=== PATIENT | female | born 1965 | race Caucasian/White ===

== ENCOUNTER → 2018-02-12 | Outpatient (CLI) | payer BC ==
--- NOTE | 2018-02-12 22:08 | MR ---
EXAMINATION TYPE: MR lumbar spine wo con DATE OF EXAM: 02/12/2018 COMPARISON: Lumbar spine x-ray February 07, 2018 HISTORY: Low back pain, Lt Leg numbness TECHNIQUE: Multiplanar, multisequence imaging of the lumbar spine is performed without IV contrast. FINDINGS: Sagittal images of the lumbar spine show vertebral body heights and alignment to appear sat isfactory. Multilevel disc desiccation is present. There is advanced disc space narrowing L4-L5 level . There is moderate disc space narrowing L5-S1 level. There is mild disc space narrowing L3-L4 level. Posterior increased signal consistent with annular tears is present L3-L4 and L5-S1 levels. Posterio r disc herniations are seen in L2-L3 through the L5-S1 levels on sagittal images. The conus medullari s is normal in position and signal ending at T12-L1 disc space level. There is heterogeneous Modic ty pe II degenerative change involving the L4-L5 endplate with mild to moderate anterior spurring. Axial images show the T12-L1 level to appear within normal limits. Axial images at the L1-L2 level show mild broad disc bulge minimally effacing the anterior thecal sac , bilateral neural foramina are patent. Axial images at L2-L3 level shows mild to moderate facet degenerative changes and ligamentum flavum h ypertrophy effacing posterior lateral thecal sac. There is moderate broad-based posterior disc protru luci effacing the anterior thecal sac on axial image 18. There is mild bilateral anterior inferior ne ural foraminal narrowing seen. Axial images at the L3-L4 level show mild to moderate facet degenerative changes and ligamentum flavu m hypertrophy. There is right paracentral disc protrusion effacing the anterior thecal sac. There is mild to moderate right greater than left anterior inferior neural foraminal narrowing. Encroachment o n right L3 nerve may be present sagittal image 12 though this is less prominent on axial images. Axial images at the L4-L5 levels show mild to moderate facet degenerative changes bilaterally. There is central disc protrusion minimally effacing the anterior thecal sac. Bilateral neural foramina show mild narrowing. Axial images at L5-S1 level show mild facet degenerative changes bilaterally. There is broad-based ce ntral disc protrusion seen minimally effacing anterior thecal sac. Bilateral neural foramina are hutton nt. No suspicious retroperitoneal findings are seen. IMPRESSION: Multilevel degenerative changes in the lumbar spine as detailed above.
== END ==
LOC: RADMRIMAIN 21:15
PROVIDERS: ATTEND Orthopaedic Surgery
DX: M48.07 Spinal stenosis, lumbosacral region (principal); M99.73 Connective tissue and disc stenosis of intervertebral foramina of lumbar region; M51.27 Other intervertebral disc displacement, lumbosacral region; M47.816 Spondylosis without myelopathy or radiculopathy, lumbar region
CPT/HCPCS: 72148